=== PATIENT | male | born 1980 | race Caucasian/White ===

== ENCOUNTER 2019-12-13 09:17 | Day surgery (SDC) | payer OTHER ==
[~2019-12-13 09:17] MED LIST: Buffered Lidocaine 1% SYRIN* 1 ML/SYRINGE INTRADERM ONE; Lactated Ringers 1000 ML Bag* 1,000 ML IV SCH
[2019-12-13] MEDS ORDERED: ceFAZolin 2 GM PREMIX in ORs 2 GM/50 ML BAG ONE (09:50)
[2019-12-13] MEDS ORDERED: Buffered Lidocaine 1% SYRIN* 1 ML/SYRINGE INTRADERM ONE (09:51)
[2019-12-13] MEDS ORDERED: Labetalol IV* 5 MG/ML 20 ML VIAL IV PUSH ONE (10:38)
[2019-12-13] MEDS ORDERED: Labetalol IV* 5 MG/ML 20 ML VIAL ONE (10:41)
[2019-12-13] MEDS ORDERED: Midazolam* 1 MG/ML 2 ML VIAL (2 MG) ONE ×2 (11:29→12:38)
[2019-12-13] MEDS ORDERED: Bupivacaine 0.25% SDV* 30 ML ONE (11:55)
[2019-12-13] MEDS ORDERED: Propofol* 10 MG/ML 20 ML BTL ONE ×4 (12:17→12:46)
[2019-12-13] MEDS ORDERED: Lidocaine 2% PF * 5 ML VIAL ONE (12:17)
[2019-12-13] MEDS ORDERED: oxyCODONE TAB* 5 MG TAB PO PRN (12:50)
[2019-12-13] MEDS ORDERED: Ketorolac INJ* 30 MG/ML 1 ML VIAL IV PRN (12:50)
[2019-12-13] MEDS ORDERED: Ondansetron INJ* 2 MG/ML VIAL IV PRN (12:50)
[2019-12-13] MEDS ORDERED: Acetaminophen TAB* 325 MG PO PRN (12:50)
[2019-12-13] MEDS ORDERED: Naloxone* 0.4 MG/ML 1 ML VIAL IV PRN (12:50)
--- NOTE | 2019-12-13 13:52 | OP ---
OPERATIVE REPORT: DATE OF OPERATION: 12/13/19 - SDS DATE OF : 76 SURGEON: Abraham Cui MD FENCE SUPERVISOR: IRASEMA Pineda ANESTHESIOLOGIST: Dr. Saravia. ANESTHESIA: Local MAC. PRE-OP DIAGNOSIS: Left thumb extensor tendon laceration over the dorsum of the proximal phalanx. POST-OP DIAGNOSIS: Left thumb extensor tendon laceration over the dorsum of the proximal phalanx. OPERATIVE PROCEDURE: Repair of left thumb extensor tendon laceration. INDICATIONS: Mr. Carranza had had traumatic sharp laceration with a saw of the left thumb extensor tendon. He had complete inability to extend the thumb at the IP joint. We talked about treatment options, risks and benefits. He wanted to proceed with surgery. ESTIMATED BLOOD LOSS: 2 mL. COMPLICATIONS: None. FINDINGS: See above and below DESCRIPTION OF PROCEDURE: Mr. Carranza was seen in the preoperative holding area. The correct site, side, and procedures were identified. We came back to the operating room. The arm was prepped and draped in the usual fashion and a time-out was performed. I had injected 0.5% plain Marcaine before prepping. The arm was exsanguinated with the Esmarch and the tourniquet was inflated. This was a forearm based tourniquet. I extended the traumatic wound distally and proximally. I sew back the skin flaps, the laceration was seen. I went ahead and sew back together the subtendinous fatty tissue with a 4-0 PDS. Once I had sewn that back, I used a 3-0 FiberWire in a Silvers[place]old fashion sewing the two ends of the tendon back together. I then augmented this with a 4-0 PDS running stitch just to smooth everything off and reinforce the repair. Once this was done, I had excellent apposition, I checked to make sure the tendon was freely mobile both superficial and deep to the tendon. Everything looked good. I irrigated out the wounds. The skin was closed with 4-0 nylon suture. He was placed in a thumb spica splint with the IP joint extended. He was taken to the recovery room in stable condition. [id number]/[facility] #: [id number] MTDD
[2019-12-13 13:54] VITALS: BP 133/85
== END 2019-12-13 13:48 | disposition home or self-care (01) ==
LOC: OR 09:17
PROVIDERS: ATTEND Orthopaedic Surgery Hand Surgery
DX: S66.222A Laceration of extensor muscle, fascia and tendon of left thumb at wrist and hand level, initial encounter (principal); I10 Essential (primary) hypertension; F17.210 Nicotine dependence, cigarettes, uncomplicated; E03.9 Hypothyroidism, unspecified; W31.1XXA Contact with metalworking machines, initial encounter; Y92.9 Unspecified place or not applicable
CPT/HCPCS: J0690; J2250; J2704; J3490